=== PATIENT | female | born 1990 | race Caucasian/White ===

== ENCOUNTER 2016-09-23 07:00 | Inpatient (IN) ==
[2016-09-23] MEDS ORDERED: miSOPROStol 25 MCG TABLET VG PRN (10:38)
[2016-09-23] MEDS ORDERED: Famotidine 20 MG/2 ML VIAL IVP PRN (10:38)
[2016-09-23] MEDS ORDERED: Metoclopramide 10 MG/2 ML VIAL IVP PRN (10:38)
[2016-09-23] MEDS ORDERED: Ondansetron 4 MG/2 ML VIAL IVP PRN (10:38)
[2016-09-23] MEDS ORDERED: Ringers Solution, Lactated 1,000 ML IVC SCH (10:45)
[2016-09-23 11:12] LABS: Basophils % 0.3 %; Eosinophils % 0.3 %; Hematocrit 35.7 % (35.3-44.9); Immature Granulocytes % 0.4 % (0-4); Immature Platelets 3.7 % (1.1-6.1); Lymphocytes # 1.3 K/mcL (0.6-4.6); Lymphocytes % 16.4 %; Mean Corpuscular HGB Conc 33.6 g/dL (31.6-35.5); Mean Corpuscular Hemoglobin 28.5 pg (28.0-33.3); Mean Corpuscular Volume 84.8 fL (83.0-100.0); Mean Platelet Volume 9.9 fL (9.4-12.4); Monocytes # 0.5 K/mcL (0.0-1.3); Monocytes % 6.5 %; Neutrophils # 5.9 K/mcL (1.6-8.9); Platelet Count 209 K/mcL (140-400); Red Blood Count 4.21 M/mcL (3.82-4.97); Red Cell Distribution Width 13.2 % (11.5-14.5); Segmented Neutrophils % 76.1 %
--- NOTE | 2016-09-23 11:49 | OB Labor Progress Note ---
Date of Encounter: 09/23/16 Time of Encounter: 11:47 Labor Progress Note - Subjective Subjective: Pt denies complaints at this time. - Cervix Cervix: 50/-2 - Heart Tones Heart Tones: Category I - Interventions Interventions: Cytotec placed. - Plan Plan: Cytotec placed at this time. Will place chappell when able. Epidural when requested. Anticipate .
--- NOTE | 2016-09-23 11:58 | OB/GYN History & Physical ---
Date of Encounter: 09/23/16 Time of Encounter: 11:51 Assessment and Plan (1) Gestational diabetes Current visit: Yes Status: Acute admit for IOL with cytotec. Anticipate Qualifiers: Gestational diabetes mellitus control: oral hypoglycemic-controlled Trimester: third trimester Qualified Code(s): O24.415 - Gestational diabetes mellitus in , controlled by oral hypoglycemic drugs (2) 39 weeks gestation of Current visit: Yes Status: Acute admit for IOL Clear liquids cytotec may have epidural as desires anticipate History of Present Illness HPI: Ms. Golden is a 26 year old female 39+2 here for IOL for GDM. has been complicated by GDM medication managed. Otherwise uncomplicated. + movement, denies vaginal bleeding, and leaking of fluid Labs:A+, antibody negative, rubella immune GBS and serologies negative. Past Med Surg Social Fam HX - Past Medical History Medical history: no medical history Psychiatric history: no psych history - Past Surgical History Surgical History: other (wisdom teeth ) Obstetrical History - Pregnancies : 1 Para: 0 Term: 0 : 0 Ab's: 0 Livin - History/Complications History/Complications: geataional DM Medications and Allergies Metformin HCl [Fortamet] 500 mg PO BID 09/23/16 [History] Vit Calc,Iron,Folic [ Vitamins] 1 tab PO DAILY 09/23/16 [ History] Allergies No Known Allergies Allergy (Verified 09/23/16 10:56) Review of System OB All systems PM: reviewed and no additional remarkable complaints except as stated Exam - Constitutional Constitutional: well developed, well nourished, no acute distress - Neck Neck exam: full ROM - Lungs Respiratory exam: CTAB - Cardiovascular Cardiovascular exam: RRR, +S1, +S2 - Breasts Breast: bilateral: normal - Abdomen Abdomen: Present: bowel sounds normal, gravid, non tender - Vulva Vulva: bilateral: normal - Vagina Vagina: Present: normal moisture - Cervix Dilation: 1 Effacement: 50 Station: -2 - Uterus Uterus exam: Present: normal size, normal contour Results Result Diagrams: 09/23/16 11:00 All other labs normal. - VTE Reasons for not Prescribing Prophylaxis: Treatment not Indicated - Low risk for VTE
--- NOTE | 2016-09-23 16:07 | OB Labor Progress Note ---
Date of Encounter: 09/23/16 Time of Encounter: 16:06 Labor Progress Note - Plan Plan: Discussed with Dr. araya who looked at current tracing, Start pitocin. order placed.
[2016-09-23] MEDS ORDERED: Oxytocin 20 units/ LR 1000 mL 20 UNIT/1,000 ML BAG IVC SCH (16:15)
[2016-09-23] MEDS ORDERED: *HR* Nalbuphine 20 MG/ML AMPUL IVP PRN (18:54)
[2016-09-24] MEDS ORDERED: Lidocaine 1% 20 ML MDV ONE (01:20)
--- NOTE | 2016-09-24 02:40 | OB/GYN Procedure Note ---
Delivery - Delivery Date: 09/24/16 Provider: Sushil Smith Intrapartum events: none Delivery induction: misoprostol Delivery augmentation: rupture of membranes, pitocin Delivery monitor: external FHT, external uterine Anesthesia: local Estimated Blood Loss: 400 - Infant (s) A Delivery Date: 09/24/16 Delivery Time: 01:34 Presentation: vertex Position: CA Route of delivery: Gender: Female Viability: Viable Pounds: 8 Ounces: 4 Weight Gram: 3745 kg at 1 minute: 8 at 5 mins: 9 Shoulder Dystocia: not encountered Specimens collected: cord blood Placenta: spontaneous Cord: 3 umbilical vessels - Repair Episiotomy: none Laceration Description: Perineal - 4th Degree - Complications Delivery complications: none - Disposition Mom disposition: stable in LDR disposition: stable in LDR - Comments Comments: Patient progressed to complete dilatation and had a spontaneous vaginal delivery of a viable female . scores were 8 and 9 at 1 and 5 minutes respectively, and the weighed 8 lbs. 4 oz. Placenta delivered spontaneously and appeared to be intact. A fourth degree laceration which did not involve the rectal mucosa was repaired in usual fashion with 3-0 Vicryl suture. All sponge needle and counts reported as correct. Estimated blood loss 400 mL. No shoulder dystocia was encountered, no nuchal cord was present.
[2016-09-24] MEDS ORDERED: Oxytocin 20 units/ LR 1000 mL 20 UNIT/1,000 ML BAG IVC ONE (03:04)
[2016-09-24] MEDS ORDERED: Acetaminophen 325 MG TABLET PO PRN (03:04)
[2016-09-24] MEDS ORDERED: Oxytocin 20 units/ LR 1000 mL 20 UNIT/1,000 ML BAG IV SCH (03:04)
[2016-09-24] MEDS: Ibuprofen 600 MG TABLET PO PRN ×2 (03:19→14:34)
[2016-09-24] MEDS: *HR* HYDROcodone/Acet 5/325 mg TABLET PO PRN ×3 (03:19→22:37)
[2016-09-24 04:15] LABS: Basophils % 0.1 %; Hematocrit 34.7 % (35.3-44.9); Immature Granulocytes % 0.7 % (0-4); Lymphocytes # 0.5 K/mcL (0.6-4.6); Lymphocytes % 2.9 %; Mean Corpuscular HGB Conc 34.6 g/dL (31.6-35.5); Mean Corpuscular Hemoglobin 28.9 pg (28.0-33.3); Mean Corpuscular Volume 83.6 fL (83.0-100.0); Mean Platelet Volume 10.3 fL (9.4-12.4); Monocytes % 5.5 %; Platelet Count 186 K/mcL (140-400); Red Blood Count 4.15 M/mcL (3.82-4.97); Red Cell Distribution Width 13.2 % (11.5-14.5); Segmented Neutrophils % 90.8 %
[2016-09-24] MEDS ORDERED: Benzocaine/Menthol 56 GM AEROSOL SPRAY TP PRN (07:37)
[2016-09-24] MEDS: Prenatal Vit/FA 1 EACH TABLET PO SCH (10:29)
[2016-09-25] MEDS: Ibuprofen 600 MG TABLET PO PRN (06:57)
[2016-09-25] MEDS: *HR* HYDROcodone/Acet 5/325 mg TABLET PO PRN (06:57)
[2016-09-25 08:57] VITALS: BP 127/83
[2016-09-25] MEDS: Prenatal Vit/FA 1 EACH TABLET PO SCH (09:24)
--- NOTE | 2016-09-25 09:48 | Discharge Summary ---
Date of Encounter: 09/25/16 Time of Encounter: 09:45 - Discharge Diagnosis (1) Status post vaginal delivery Priority: Primary Status: Acute - Discharge Medications Prescriptions: Ibuprofen [Motrin] 600 mg PO Q6HR PRN #30 tablet PRN Reason: Cramping Ferrous Sulfate 325 mg PO DAILY #30 tablet Home Medications: Metformin HCl [Fortamet] 500 mg PO BID 09/23/16 [History] Vit Calc,Iron,Folic [ Vitamins] 1 tab PO DAILY 09/23/16 [ History] Ferrous Sulfate 325 mg PO DAILY #30 tablet 09/25/16 [Rx] Ibuprofen [Motrin] 600 mg PO Q6HR PRN #30 tablet 09/25/16 [Rx] Allergies/Adverse Reactions: Allergies No Known Allergies Allergy (Verified 09/23/16 10:56) Data Procedures and tests throughout hospitalization: Laboratory Tests 09/23/16 09/24/16 11:00 03:54 WBC 7.7 18.7 H D RBC 4.21 4.15 Hgb 12.0 12.0 Hct 35.7 34.7 L MCV 84.8 83.6 MCH 28.5 28.9 MCHC 33.6 34.6 RDW 13.2 13.2 Plt Count 209 186 MPV 9.9 10.3 Immature Gran % 0.4 0.7 Seg Neutrophils % 76.1 90.8 Lymphocytes % 16.4 2.9 Monocytes % 6.5 5.5 Eosinophils % 0.3 0.0 Basophils % 0.3 0.1 Neutrophils # 5.9 17.0 H Lymphocytes # 1.3 0.5 L Monocytes # 0.5 1.0 Eosinophils # 0.0 0.0 Basophils # 0.0 0.0 Immature Plt Fraction 3.7 Date of admission: 09/23/16 09:13 Primary care physician: PCP NO Consults: 09/24/16 03:04 Consult to Sm[employer] [CONS] Routine Comment: Vaginal delivery, consult needed Discharging clinician: Antony Alexis Anticipated date of discharge: 09/25/16 - Patient Status Disposition: Home, Self-Care Condition: Good Functional capacity at discharge: independent ambulation Overall status at discharge: patient is progressing back to baseline - Discharge Instructions Follow Up With: Sushil Smith DO [Partnered Physician] - (October 25, 2016 @ 3:00 pm) NO,PCP [Primary Care Provider] - - Diet and Activity Activity: increase activity as tolerated Diet: advance to your usual diet Hospital Course Procedures: vaginal delivery Reason for admission: induction of labor Delivery: Episiotomy: none Laceration: none complications: none Discharge diagnosis: IUP at term delivered Hospital course: She is a 26-year-old female who presented for induction of labor secondary to . Patient delivered vaginally without any complications. Patient was doing well on hospital day #1 but had been complaining of some lightheadedness and dizziness when she got up and stated that she was still bleeding heavy to us. When we questioned her in more detail about this the lightheadedness and dizziness was only after taking the pain medication and the bleeding appears to be normal is just on the ice packs which makes it look worse than it actually is. CBC was obtained the patient which is stable. She will be discharged home with prescription for Motrin 600 mg and iron sulfate and she will follow up in the office in 4 weeks. Time Attestation: Total time spent providing and/or coordinating discharge services: Exam - Constitutional Vitals: Temp Pulse Resp BP Pulse Ox 97.7 F 82 16 127/83 96 09/25/16 07:50 09/25/16 07:50 09/25/16 07:50 09/25/16 07:50 09/25/16 07:50 General appearance IM: A&O X 3, no acute distress - Respiratory Respiratory exam: Present: CTAB - Cardiovascular Cardiovascular exam IM: Present: RRR - GI/Abdominal GI/Abdominal exam IM: normal bowel sounds - Uterine Tone: Firm Uterus Position: At Umbilicus
[2016-09-25 09:52] LABS: Basophils % 0.2 %; Eosinophils % 0.3 %; Hematocrit 31.4 % (35.3-44.9); Hemoglobin 10.5 g/dL (11.5-15.4); Immature Granulocytes % 0.9 % (0-4); Lymphocytes # 1.5 K/mcL (0.6-4.6); Lymphocytes % 13.5 %; Mean Corpuscular HGB Conc 33.4 g/dL (31.6-35.5); Mean Corpuscular Hemoglobin 28.8 pg (28.0-33.3); Mean Platelet Volume 9.6 fL (9.4-12.4); Monocytes # 0.8 K/mcL (0.0-1.3); Monocytes % 6.7 %; Neutrophils # 8.9 K/mcL (1.6-8.9); Platelet Count 176 K/mcL (140-400); Red Blood Count 3.65 M/mcL (3.82-4.97); Red Cell Distribution Width 13.5 % (11.5-14.5); Segmented Neutrophils % 78.4 %
== END 2016-09-25 14:31 | disposition home or self-care (01) | DRG 775 ==
LOC: 1NENULAB 09:13 → 1NENUOBS 09-24 05:10

== ENCOUNTER 2019-06-29 12:00 | Inpatient (IN) ==
[2019-06-29] MEDS ORDERED: Epidural Premix (fent/bupiv) 110 ML EP SCH (12:15)
[2019-06-29] MEDS ORDERED: Metoclopramide 10 MG/2 ML VIAL IVP PRN (12:17)
[2019-06-29] MEDS ORDERED: Famotidine 20 MG/2 ML VIAL IVP PRN (12:17)
[2019-06-29] MEDS ORDERED: Lidocaine 1% 20 ML MDV INFILT PRN (12:17)
[2019-06-29] MEDS ORDERED: *HR* Nalbuphine 10 MG/ML AMPUL IVP PRN (12:17)
[2019-06-29] MEDS ORDERED: Ondansetron 4 MG/2 ML VIAL IVP PRN (12:17)
[2019-06-29] MEDS ORDERED: Naloxone 0.4 MG/ML INJ IVP PRN (12:17)
[2019-06-29] MEDS ORDERED: Oxytocin 20 units/ LR 1000 mL 20 UNIT/1,000 ML BAG IVC SCH (12:30)
[2019-06-29 13:26] LABS: Basophils % 0.4 %; Hematocrit 35.2 % (35.3-44.9); Hemoglobin 12.1 g/dL (11.5-15.4); Immature Granulocytes % 0.6 % (0-4); Lymphocytes # 1.3 K/mcL (0.6-4.6); Lymphocytes % 15.7 %; Mean Corpuscular HGB Conc 34.4 g/dL (31.6-35.5); Mean Corpuscular Hemoglobin 29.7 pg (28.0-33.3); Mean Corpuscular Volume 86.3 fL (83.0-100.0); Mean Platelet Volume 9.8 fL (9.4-12.4); Monocytes # 0.5 K/mcL (0.0-1.3); Monocytes % 6.3 %; Neutrophils # 6.2 K/mcL (1.6-8.9); Platelet Count 208 K/mcL (140-400); Red Blood Count 4.08 M/mcL (3.82-4.97); Red Cell Distribution Width 12.7 % (11.5-14.5)
[2019-06-29 13:35] LABS: Amphetamine Screen,Urine Negative ng/mL (Cutoff=1000); Barbiturate Screen,Urine Negative ng/mL (Cutoff=200); Benzodiazepines Screen,Urine Negative ng/mL (Cutoff=200); Cannabinoid Screen,Urine Negative ng/mL (Cutoff = 50); Cocaine Screen,Urine Negative ng/mL (Cutoff= 300); Opiate Screen,Urine Negative ng/mL (Cutoff=300); Phencyclidine Screen,Urine Negative ng/mL (Cutoff=25)
[2019-06-29] MEDS: Ringers Solution, Lactated 1,000 ML IVC SCH (14:13)
[2019-06-29] MEDS ORDERED: Lidocaine 1% 20 ML MDV ONE (21:43)
[2019-06-29] MEDS ORDERED: Oxytocin 20 units/ LR 1000 mL 20 UNIT/1,000 ML BAG IVC ONE (22:08)
[2019-06-30] MEDS ORDERED: Rho Immune Globulin 1,500 UNIT SYRINGE IM PRN (01:21)
[2019-06-30] MEDS ORDERED: Oxytocin 20 units/ LR 1000 mL 20 UNIT/1,000 ML BAG IVC ONE (01:21)
[2019-06-30] MEDS ORDERED: Measles/Mumps/Rubella Vacc 0.5 ML VIAL SQ PRN (01:21)
[2019-06-30] MEDS ORDERED: Benzocaine/Menthol 56 GM AEROSOL SPRAY TP PRN (01:21)
[2019-06-30] MEDS: Ibuprofen 600 MG TABLET PO SCH ×4 (02:05→18:51)
[2019-06-30] MEDS: *HR* HYDROcodone/Acet 5/325 mg TABLET PO PRN ×4 (02:06→22:01)
[2019-06-30 07:55] LABS: Basophils % 0.1 %; Hematocrit 33.8 % (35.3-44.9); Hemoglobin 11.9 g/dL (11.5-15.4); Immature Granulocytes % 0.6 % (0-4); Lymphocytes # 1.4 K/mcL (0.6-4.6); Lymphocytes % 11.5 %; Mean Corpuscular HGB Conc 35.2 g/dL (31.6-35.5); Mean Corpuscular Hemoglobin 29.7 pg (28.0-33.3); Mean Corpuscular Volume 84.3 fL (83.0-100.0); Mean Platelet Volume 9.7 fL (9.4-12.4); Monocytes # 1.1 K/mcL (0.0-1.3); Monocytes % 8.7 %; Neutrophils # 9.7 K/mcL (1.6-8.9); Platelet Count 186 K/mcL (140-400); Red Blood Count 4.01 M/mcL (3.82-4.97); Red Cell Distribution Width 12.8 % (11.5-14.5); Segmented Neutrophils % 79.1 %
[2019-06-30 08:00] LABS: White Blood Count 12.2 K/mcL (4.3-11.1)
[2019-06-30] MEDS: Oxytocin 20 units/ LR 1000 mL 20 UNIT/1,000 ML BAG IVC SCH ×2 (08:14→11:29)
[2019-06-30] MEDS: Ringers Solution, Lactated 1,000 ML IVC SCH (08:17)
[2019-06-30] MEDS: Prenatal Vit/FA 1 EACH TABLET PO SCH (08:21)
[2019-07-01] MEDS: Ibuprofen 600 MG TABLET PO SCH (05:18)
[2019-07-01 08:23] VITALS: BP 124/74
[2019-07-01] MEDS: Prenatal Vit/FA 1 EACH TABLET PO SCH (08:58)
[2019-07-01] MEDS: *HR* HYDROcodone/Acet 5/325 mg TABLET PO PRN (08:58)
== END 2019-07-01 11:52 | disposition home or self-care (01) | DRG 806 ==
LOC: 1NENULAB 12:06 → 1NENUOBS 06-30 01:21
PROVIDERS: ADMIT Student in an Organized Health Care Education/Training Program; ATTEND Student in an Organized Health Care Education/Training Program